=== PATIENT | male | born 1955 | race Caucasian/White ===

== ENCOUNTER 2016-08-11 09:32 | Observation (INO) | payer OTHER ==
[~2016-08-11] VITALS: Ht 172.7 cm; Wt 83.9 kg
[2016-08-11 10:09] LABS: HEMOGLOBIN 11.5 gm/dl (14.0-17.5); RED BLOOD COUNT 4.75 M/UL (4.20-5.50); WHITE BLOOD COUNT 6.9 K/UL (4.5-11.0)
[2016-08-11 10:34] LABS: BUN/CREATININE RATIO 19 (0-10)
[2016-08-11] MEDS ORDERED: RANEXA500 MG PO (16:16)
[2016-08-11] MEDS ORDERED: ALPRAZOLAM0.5 MG PO (16:17)
[2016-08-11] MEDS ORDERED: PERCOCET 10-321 EACH PO (16:17)
[2016-08-11] MEDS ORDERED: LISINOPRIL5 MG PO (16:18)
[2016-08-11] MEDS ORDERED: NORVASC 5 MG TAB5 MG PO (16:20)
[2016-08-11] MEDS ORDERED: ASPIR 8181 MG PO (16:20)
[2016-08-11] MEDS ORDERED: PRILOSEC OTC20 MG PO (16:21)
[2016-08-11] MEDS ORDERED: IMDUR ER TAB 3030 MG PO (16:22)
[2016-08-11] MEDS ORDERED: GABAPENTIN800 MG PO (16:23)
[2016-08-11] MEDS ORDERED: PLAVIX 75 MG TA75 MG PO (16:24)
[2016-08-11] MEDS ORDERED: PRAVACHOL80 MG PO (16:32)
[2016-08-11] MEDS ORDERED: RANEXA1000 MG PO (18:44)
== END 2016-08-11 19:30 | disposition home or self-care (01) ==
LOC: ER1 09:32 → M/S 13:44
PROVIDERS: Emergency Medicine; ADMIT Internal Medicine
DX: R07.89 Other chest pain (principal); I25.10 Atherosclerotic heart disease of native coronary artery without angina pectoris; I10 Essential (primary) hypertension; E78.5 Hyperlipidemia, unspecified; F41.9 Anxiety disorder, unspecified; G89.4 Chronic pain syndrome; K21.9 Gastro-esophageal reflux disease without esophagitis; D50.9 Iron deficiency anemia, unspecified; I25.2 Old myocardial infarction; Z95.1 Presence of aortocoronary bypass graft; Z79.82 Long term (current) use of aspirin; Z79.02 Long term (current) use of antithrombotics/antiplatelets; Z79.891 Long term (current) use of opiate analgesic; Z79.899 Other long term (current) drug therapy; Z95.5 Presence of coronary angioplasty implant and graft; Z88.5 Allergy status to narcotic agent; Z88.8 Allergy status to other drugs, medicaments and biological substances; Z76.5 Malingerer [conscious simulation]
CPT/HCPCS: 36415; 71010; 80053; 82550; 82553; 83690; 83735; 83874; 84484; 85025; 85610; 85730; 93005; 96374; 96375; 99285; G0378; J2405